=== PATIENT | female | born 1990 | race Caucasian/White ===

== ENCOUNTER 2017-08-17 16:43 | Outpatient (CLI) | payer SELFPAY ==
[2017-08-17 17:40] VITALS: BP 119/77
[2017-08-17] MEDS ORDERED: LACTATED RINGERS 500 ML IV ONE (19:00)
== END 2017-08-17 19:37 | disposition home or self-care (01) ==
LOC: TRG 16:43
PROVIDERS: ATTEND Obstetrics & Gynecology
DX: O47.1 False labor at or after 37 completed weeks of gestation (principal); Z3A.38 38 weeks gestation of pregnancy
CPT/HCPCS: 59025

== ENCOUNTER 2017-09-24 15:22 | Outpatient (CLI) | payer SELFPAY ==
--- NOTE | 2017-09-24 19:06 | Ultrasound Report ---
FINAL REPORT PROCEDURE: US OB BPP WO NON-STRESS TECHNIQUE: Sonographic evaluation for breathing, movement, tone, and amniotic fluid volume was performed. CPT 73864 HISTORY: well being. COMPARISON: No prior studies are available for comparison. FINDINGS: Amniotic fluid volume: Normal-score 2. At least one vertical pocket > 2 cm or more in vertical axis. breathing: Normal-score 2. movement: Normal-score 2. tone: Normal. Score: 8 of 8. heart rate 133 beats per minute. position: Cephalic. IMPRESSION: Normal biophysical profile.
--- NOTE | 2017-09-24 19:08 | Ultrasound Report ---
FINAL REPORT PROCEDURE: US OB LIMITED TECHNIQUE: Real-time limited sonographic examination was performed for evaluation of size, position, heartbeat, fluid volume for each fetus with image documentation (1 or more fetuses). CPT 09147 HISTORY: well being. DAGO. COMPARISON: Biophysical profile dated same day and time. FINDINGS: FETUS IUP: Single living intrauterine . Position: Cephalic. Amniotic fluid volume: 10.6 cm. Heart rate and rhythm: 134 BPM, Regular . IMPRESSION: position cephalic. Normal amniotic fluid volume. Please refer to biophysical profile report dated same day and time for full details concerning findings.
[2017-09-24 20:52] VITALS: BP 114/68
== END 2017-09-24 17:44 | disposition home or self-care (01) ==
LOC: TRG 15:22
PROVIDERS: ATTEND Obstetrics & Gynecology
DX: O48.0 Post-term pregnancy (principal); Z3A.40 40 weeks gestation of pregnancy
CPT/HCPCS: 59025; 76815; 76819

== ENCOUNTER 2017-09-28 02:54 | Inpatient (IN) | payer OTHER ==
[2017-09-28] MEDS ORDERED: BRETHINE SUB-Q ONE (03:26)
[2017-09-28] MEDS ORDERED: REGLAN IV ONE ×2 (03:27→04:40)
[2017-09-28] MEDS ORDERED: BICITRA PO ONE ×2 (03:27→04:40)
[2017-09-28] MEDS ORDERED: PEPCID IV ONE ×2 (03:27→04:40)
[2017-09-28] MEDS ORDERED: ANCEF/STERILE WATER 2 GM/20 ML 2 GM/20 ML SYRINGE IV NR (04:00)
[2017-09-28] MEDS ORDERED: LACTATED RINGERS 1,000 ML IV SCH ×2 (04:00→05:00)
[2017-09-28] MEDS ORDERED: PITOCin/NS 20 UNIT/1000ML DRIP 20 UNITS/1,000 ML BAG IV SCH ×3 (04:00→07:00)
[2017-09-28] MEDS ORDERED: ASTRAMORPH PF 10MG/10ML ONE (04:01)
[2017-09-28 04:02] LABS: Basophils % (Auto) 0.2 % (0.0-1.8); Eosinophils # (Auto) 0.1 K/mm3 (0.0-0.4); Eosinophils % (Auto) 0.6 % (0.0-4.3); Hematocrit 38.7 % (30.3-42.9); Hemoglobin 13.2 gm/dl (10.1-14.3); Lymphocytes # (Auto) 2.1 K/mm3 (1.2-5.4); Lymphocytes % (Auto) 17.7 % (13.4-35.0); Mean Corpuscular HGB Conc 34 % (30-34); Mean Corpuscular Hemoglobin 30 pg (28-32); Mean Corpuscular Volume 87 fl (79-97); Monocytes # (Auto) 0.5 K/mm3 (0.0-0.8); Monocytes % (Auto) 4.3 % (0.0-7.3); Platelet Count 181 K/mm3 (140-440); Red Blood Count 4.45 M/mm3 (3.65-5.03); Red Cell Distribution Width 14.8 % (13.2-15.2)
[2017-09-28] MEDS ORDERED: ZOFRAN IV PRN ×2 (04:19→06:07)
[2017-09-28] MEDS ORDERED: NARCAN 0.4 MG/1 ML IV PRN ×2 (04:19→06:07)
[2017-09-28] MEDS ORDERED: PHENERGAN PO PRN (04:19)
[2017-09-28] MEDS ORDERED: PHENERGAN PR PRN (04:19)
--- NOTE | 2017-09-28 04:19 | Anesthesia Day of Surgery ---
Anesthesia Day of Surgery - Day of Surgery Patient Examined: Yes Patient H&P Reviewed: Yes Patient is NPO: Yes
--- NOTE | 2017-09-28 04:19 | Anesthesia Consultation ---
Anesthesia Consult and Med Hx Date of service: 09/28/17 - Airway Anesthetic Teeth Evaluation: Good ROM Head & Neck: Adequate Mental/Hyoid Distance: Adequate Mallampati Class: Class II Intubation Access Assessment: Possibly Difficult - Pulmonary Exam CTA: Yes - Cardiac Exam Cardiac Exam: RRR - Pre-Operative Health Status ASA Pre-Surgery Classification: ASA2 Proposed Anesthetic Plan: Epidural, Spinal - Pulmonary Hx Smoking: No Hx Asthma: No - Cardiovascular System Hx Hypertension: No - Central Nervous System Hx Seizures: No Hx Psychiatric Problems: No - Endocrine Hx Renal Disease: No Hx Hypothyroidism: No Hx Hyperthyroidism: No - Hematic Hx Anemia: No Hx Sickle Cell Disease: No - Other Systems Hx Alcohol Use: No
[2017-09-28 04:31] LABS: Amphetamine Screen,Urine PRESUMPTIVE NEGATIVE; Benzodiazepines Screen,Urine PRESUMPTIVE NEGATIVE; Cannabinoid Screen,Urine PRESUMPTIVE NEGATIVE; Cocaine Screen,Urine PRESUMPTIVE NEGATIVE; Methadone Screen,Urine PRESUMPTIVE NEGATIVE; Opiate Screen,Urine PRESUMPTIVE NEGATIVE
--- NOTE | 2017-09-28 04:46 | History and Physical Report ---
History of Present Illness Date of examination: 09/28/17 Date of admission: 09/28/17 04:35 Chief complaint: SIUP at 40 weeks gestation with contractions. History of present illness: Patient is 27 year old , LMP 12/01/16, EDC 09/24/17 at 40 weeks and 4 days gestation who presented to triage complaining of having contractions since about 9 PM last night. She denies any fluid leakage or bleeding. She reports good movement. She was late registrant to care at [facility] in 05/2017 and only had 3 visits. She has not been to the clinic since may. Her records are not available. Past History Past Surgical History: section Family/Genetic History: none Social history: no significant social history - Obstetrical History Expected Date of Delivery: 09/24/17 Actual Gestation: 40 Week(s) 4 Day(s) : 2 Para: 1 Number of Living Children: 1 Medications and Allergies Allergies Allergy/AdvReac Type Severity Reaction Status Date / Time No Known Allergies Allergy Unverified 08/17/17 18:26 Home Medications Medication Instructions Recorded Confirmed Last Taken Type No Known Home Medications [No 09/24/17 09/24/17 Unknown History Reported Home Medications] Active Meds: Active Medications Lactated Ringer's (Lactated Ringers) 1,000 mls @ 2,250 mls/hr IV PREOP MARLENY Stop: 09/29/17 04:27 Last Admin: 09/28/17 03:40 Dose: 2,250 mls/hr Oxytocin/Sodium Chloride (Pitocin/Ns 20 Unit/1000ml Drip) 20 units in 1,000 mls @ 0 mls/hr IV TITR MARLENY Naloxone HCl (Narcan 0.4 Mg/1 Ml) 0.2 mg IV Q2MIN PRN PRN Reason: Res Rate </= 8 or 02 SAT < 92% Ondansetron HCl (Zofran) 4 mg IV Q8H PRN PRN Reason: Nausea And Vomiting Promethazine HCl (Phenergan) 25 mg PO Q6H PRN PRN Reason: Nausea And Vomiting Promethazine HCl (Phenergan) 25 mg NH Q6H PRN PRN Reason: Nausea And Vomiting Sodium Chloride (Sodium Chloride Flush Syringe 10 Ml) 10 ml IV PRN PRN PRN Reason: LINE FLUSH - Vital Signs Vital signs: Vital Signs Temp Pulse Resp BP Pulse Ox 98.7 F 80 18 122/74 99 09/28/17 03:04 09/28/17 03:04 09/28/17 03:04 09/28/17 03:04 09/28/17 03:04 Temp Pulse Resp BP Pulse Ox 98.7 F 80 18 122/74 99 09/28/17 03:04 09/28/17 03:04 09/28/17 03:04 09/28/17 03:04 09/28/17 03:04 - Physical Exam Cardiovascular: Normal S1, Normal S2 Lungs: Positive: Clear to auscultation Vulva: both: normal Deep Tendon Reflex Grade: Normal +2 - Obstetrical FHR: category 1 Uterine Contraction Monitor Mode: External Cervical Dilatation: 6 Cervical Effacement Percentage: 90 station: -2 Uterine Contraction Pattern: Irregular Uterine Contraction Intensity: Moderate Results Result Diagrams: 09/28/17 03:40 Abnormal lab results 09/28/17 Range/Units 03:40 WBC 11.8 H (4.5-11.0) K/mm3 Seg Neutrophils % 77.2 H (40.0-70.0) % Seg Neutrophils # 9.1 H (1.8-7.7) K/mm3 All other labs normal. Assessment and Plan - Patient Problems (1) 40 weeks gestation of Current Visit: Yes Status: Acute (2) Active labor at term Current Visit: Yes Status: Acute Plan to address problem: Admit to labor floor. Prepare for repeat C/section. Risks and benefits of the procedure were discussed with the patient. She gave her informed consent. Routine admitting and labs. monitoring. NPO. IV bolus. (3) Previous section Current Visit: Yes Status: Acute Plan to address problem: For repeat C/section. (4) Non-compliance Current Visit: Yes Status: Acute (5) Late care Current Visit: Yes Status: Acute (6) Anemia Current Visit: Yes Status: Acute Qualifiers: Anemia type: iron deficiency
[2017-09-28] MEDS ORDERED: SODIUM CHLORIDE FLUSH SYRINGE 10 ML IV PRN (05:00)
[2017-09-28] MEDS ORDERED: WATER FOR IRRIG STERILE IR ONE (05:10)
[2017-09-28] MEDS ORDERED: NACL 0.9% IR ONE (05:10)
[2017-09-28] MEDS ORDERED: NEO SYNEPHRINE/NS Syringe(OR USE) IV ONE (05:36)
[2017-09-28] MEDS ORDERED: LANSINOH TP PRN (06:07)
[2017-09-28] MEDS ORDERED: TYLENOL PO PRN (06:07)
[2017-09-28] MEDS ORDERED: DILAUDID IV PRN (06:07)
[2017-09-28] MEDS ORDERED: SENOKOT PO PRN (06:07)
[2017-09-28] MEDS ORDERED: ANUCORT-HC PR PRN (06:07)
[2017-09-28] MEDS ORDERED: TORADOL IV PRN ×2 (06:07)
[2017-09-28] MEDS ORDERED: TUCKS PAD TP PRN (06:07)
--- NOTE | 2017-09-28 06:29 | Operative Report ---
Operative Report Operative Report: Preoperative diagnosis: 1. SIUP at 40 weeks and 4 days gestation in active labor. 2. Previous cesarian section. 3. Declined . Postoperative diagnosis: 1. Same as preoperative diagnosis. 2. Meconium amniotic fluid. Procedure: Repeat low transverse section. Surgeon: Dr. Rincon Arc Cutter: none Anesthesia: Epidural EBL: 300 mL Urine: 400 cc clear. IVF: 1500 cc RL Complications: none Intraoperative findings: 1. Male found in an ABBY position, delivered at 5:21 AM, Apgars 8 at one minutes and 9 at 5 minutes, weight 8 lbs. 7 oz. 2. Normal fallopian tubes and ovaries bilaterally. 3. Meconium amniotic fluid. Procedure details: The risks, benefits, and alternatives to procedure were discussed in detail with the patient, which included but not limited to the risk of infection, hemorrhage requiring blood transfusion, injury to the bowel bladder and blood vessels. The patient expressed understanding, her questions were answered, and she given informed consent. The patient was taken to the operating room with an IV fluid infusing RL and a Metz catheter in place. In the operating room, she was placed in a sitting position and given epidural anesthesia. She was then placed in the dorsal supine position with a leftward tilt. Venodyne boots were placed. The abdomen was washed and she was prepared and draped in usual sterile fashion. After assuring adequate epidural anesthesia, a Pfannenstiel skin incision was made in the lower abdomen at the level of the previous scar which is about 2 cm above the pubic symphysis. This incision was carried down to the underlying fascia using the Bovie. The fascia was opened bilaterally in a curvilinear fashion using the Bovie. 2 straight Kocker clamps were used to grasp the upper edge of the fascia form which the underlying rectus abdominis muscle was dissected off using the Bovie. A similar procedure was done with the lower edge of the fascia to dissect the underlying rectus abdominis muscle. The muscle was bluntly from the midline by pulling. The parietal peritoneum was grasped with 2 hemostat clamps and entered sharply using Metzenbaum scissors. A quick survey of the anatomy revealed a gravid uterus, normal fallopian tubes, and ovaries bilaterally. A bladder flap was created. Mika'O retractor was placed at the incision for proper visualization. A low transverse incision was made in the lower uterine segment using the scalpel and extended bilaterally using bandage scissors. The amniotic sac was ruptured and there was moderate amount of meconium-stained amniotic fluid. The was found in ABBY position , the head was delivered atraumatically, followed by delivery of the shoulders and rest of the body at 5:21 AM. The cord was clamped 2 and cord and the was handed off to the waiting slicing machine operator. The infant was a male, Apgars were 8 at 1 minute and 9 at 5 minutes, weight was 8 lbs 7 oz. Cord blood was collected. The placenta was delivered manually and it was completely three-vessel cord. The uterine cavity was cleaned of clots and debris using dry lap sponges. The uterine incision was repaired in a running locked fashion using 0 Vicryl sutures. A second layer of imbrication was placed. The gutters were cleaned of clots and debris is using dry lap sponges. After assuring adequate hemostasis, the instruments were removed from the abdominal cavity. The fascia was closed in a running fashion using 0 Vicryl sutures. The skin was closed with thad. Sterile dressing was placed. The counts of laps, needles, sponges and instruments were correct 2. The patient tolerated the procedure well. She was taken to the recovery room in a stable condition.
[2017-09-28] MEDS ORDERED: SODIUM CHLORIDE FLUSH SYRINGE 10 ML IV NR (07:00)
[2017-09-28] MEDS ORDERED: BENADRYL IV ONE (07:30)
[2017-09-28 10:13] LABS: Basophils % (Auto) 0.2 % (0.0-1.8); Eosinophils % (Auto) 0.2 % (0.0-4.3); Hemoglobin 11.9 gm/dl (10.1-14.3); Lymphocytes # (Auto) 1.8 K/mm3 (1.2-5.4); Mean Corpuscular HGB Conc 34 % (30-34); Mean Corpuscular Hemoglobin 30 pg (28-32); Mean Corpuscular Volume 88 fl (79-97); Monocytes # (Auto) 0.3 K/mm3 (0.0-0.8); Monocytes % (Auto) 2.9 % (0.0-7.3); Platelet Count 163 K/mm3 (140-440); Red Blood Count 3.99 M/mm3 (3.65-5.03)
[2017-09-28] MEDS ORDERED: D5LR 1,000 ML IV ONE (16:47)
[2017-09-28] MEDS ORDERED: D5LR 1,000 ML IV SCH (18:00)
[2017-09-28] MEDS: MOTRIN PO PRN (21:13)
[2017-09-28 22:24] LABS: Hematocrit 33.1 % (30.3-42.9); Hemoglobin 11.5 gm/dl (10.1-14.3)
[2017-09-29] MEDS: MOTRIN PO PRN ×3 (06:12→18:37)
[2017-09-29] MEDS: FEOSOL PO SCH (09:56)
[2017-09-29] MEDS: PRENATAL VITAMIN PO SCH (09:56)
[2017-09-29] MEDS: PERCOCET 5/325 PO PRN ×3 (09:57→22:35)
--- NOTE | 2017-09-29 10:12 | Progress Note ---
Assessment and Plan A: POD #1 Stable P: Follow routine postop orders increase ambulation Subjective - Subjective Date of service: 09/29/17 Patient reports: appetite normal, voiding normally, pain well controlled, flatus , ambulating normally [place]: doing well Objective - Vital Signs Latest vital signs: Vital Signs Temp Pulse Resp BP BP Pulse Ox 09/29/17 08:19 98.6 F 76 20 97/56 09/29/17 06:12 18 09/29/17 01:06 98.3 F 82 18 109/64 97 09/28/17 21:22 99.0 F 90 18 119/75 98 09/28/17 21:13 18 09/28/17 17:08 98.5 F 91 H 18 112/70 98 Intake and Output 09/28/17 09/29/17 09/29/17 22:59 06:59 14:59 Intake Total 240 120 Output Total 400 Balance -400 240 120 Intake: Oral 240 120 Output: Urine 400 Indwelling Catheter 400 Other: Total, Intake Amount 120 120 Total, Output Amount 400 # Voids Indwelling Catheter 1 - Exam Breasts: Present: normal Cardiovascular: Present: Regular rate Lungs: Present: Clear to auscultation, Normal air movement Abdomen: Present: normal appearance, soft, normal bowel sounds Uterus: Present: normal, firm, fundal height below umbilicus Extremities: Present: normal Incision: Present: normal, dry, dressed - Labs Labs: Abnormal lab results 09/28/17 Range/Units 09:38 WBC 11.8 H (4.5-11.0) K/mm3 Seg Neutrophils % 81.7 H (40.0-70.0) % Seg Neutrophils # 9.7 H (1.8-7.7) K/mm3
[2017-09-29] MEDS: MILK OF MAGNESIA PO PRN (23:31)
[2017-09-30] MEDS: MOTRIN PO PRN ×4 (00:01→23:39)
[2017-09-30] MEDS: PERCOCET 5/325 PO PRN ×2 (05:49→23:39)
--- NOTE | 2017-09-30 10:19 | Progress Note ---
Assessment and Plan A: POD#2 s/p Repeat C/S Stable Pain well controlled P: Routine PP/PO care Encouraged ambulation Discharge home in am Subjective - Subjective Date of service: 09/30/17 Principal diagnosis: s/p Repeat C/S Patient reports: appetite normal, voiding normally, pain well controlled, flatus , ambulating normally, no bowel movement : doing well, bottle feeding Objective - Vital Signs Latest vital signs: Vital Signs Temp Pulse Resp BP 09/30/17 05:49 20 09/30/17 01:36 98.6 F 80 16 104/60 09/29/17 22:35 20 09/29/17 16:30 98.2 F 84 20 108/52 Intake and Output 09/29/17 09/30/17 09/30/17 23:59 07:59 15:59 Intake Total 840 240 Balance 840 240 Intake: Oral 840 Intake, Free Water 240 Other: Total, Intake Amount 240 # Voids Indwelling Catheter 1 1 Void 1 - Exam Breasts: Present: normal Cardiovascular: Present: Regular rate, Normal S1, Normal S2 Lungs: Present: Clear to auscultation, Normal air movement Abdomen: Present: normal appearance, normal bowel sounds. Absent: distention Vulva: both: normal Uterus: Present: firm, fundal height at umbilicus Extremities: Present: normal Incision: Present: normal (LTI, closed with thad, open to air. CDI. well approximated. No drainage. ), dry, intact
--- NOTE | 2017-09-30 10:20 | Discharge Summary ---
Providers - Providers Date of Admission: 09/28/17 04:35 Date of discharge: 10/01/17 Attending physician: ALEJANDRA SEGOVIA MD Primary care physician: ALEJANDRA SEGOVIA MD Hospitalization Reason for admission: active labor, IUP at term Delivery: Procedure: repeat low transverse Procedure details: See operative note Incision: normal (LTI closed with thad, open to air, CDI, well approximated. no drainage), dry, intact complications: none Discharge diagnosis: IUP at term delivered [place] baby: male Condition at discharge: Good Disposition: DC-01 TO HOME OR SELFCARE Plan - Discharge Medications Prescriptions: Ibuprofen [Motrin] 600 mg PO Q8H PRN #20 tablet PRN Reason: Pain oxyCODONE /ACETAMINOPHEN [Percocet 5/325] 1 tab PO Q6HR #14 tab MDD 4 - Provider Discharge Summary Activity: routine, no sex for 6 weeks, no heavy lifting 4 weeks, no strenuous exercise Diet: routine Instructions: routine Additional instructions: [] Smoking cessation referral if applicable(refer to patient education folder for contact #) [] Refer to [facility]'s [facility] Booklet Call your doctor immediately for: * Fever > 100.5 * Heavy vaginal bleeding ( >1 pad per hour) * Severe persistent headache * Shortness of breath * Reddened, hot, painful area to leg or breast * Drainage or odor from incision. * Keep incision clean and dry at all times and follow doctor's instructions regarding bathing/showering - Follow up plan Follow up: ALEJANDRA SEGOVIA MD [Primary Care Provider] - 7 Days
[2017-09-30] MEDS: PRENATAL VITAMIN PO SCH (11:13)
[2017-09-30] MEDS: FEOSOL PO SCH (11:13)
[2017-09-30] MEDS: MILK OF MAGNESIA PO PRN (11:14)
[2017-10-01] MEDS: MOTRIN PO PRN ×2 (06:00→11:51)
[2017-10-01 10:01] VITALS: BP 102/57
[2017-10-01] MEDS: FEOSOL PO SCH ×2 (11:50→11:52)
[2017-10-01] MEDS: PRENATAL VITAMIN PO SCH ×2 (11:50→11:52)
== END 2017-10-01 14:20 | disposition home or self-care (01) | DRG 766 ==
LOC: TRG 02:54 → APU 04:35 → OB 08:20
PROVIDERS: ADMIT Obstetrics & Gynecology; ATTEND Obstetrics & Gynecology
PROC: 10D00Z1 Extraction of Products of Conception, Low, Open Approach (ICD-10-PCS; principal; 2017-09-28)
DX: O34.211 Maternal care for low transverse scar from previous cesarean delivery (principal); Z3A.40 40 weeks gestation of pregnancy; Z37.0 Single live birth; O99.02 Anemia complicating childbirth; D64.9 Anemia, unspecified; O77.0 Labor and delivery complicated by meconium in amniotic fluid; Z91.19 Patient's noncompliance with other medical treatment and regimen
CPT/HCPCS: 36415; 80307; 85014; 85018; 85025; 86592; 86706; 86762; 86850; 86900; 86901; 87806; 99211; G0463; J0690; J1170; J1200; J1885; J2274; J2370; J2590; J2765; J3105; J7120; J7121

== ENCOUNTER 2017-10-11 13:32 | Emergency (ER) | payer OTHER ==
[2017-10-11 14:04] VITALS: BP 108/56
--- NOTE | 2017-10-11 16:23 | Emergency Department Report ---
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 Patient stated she did not follow up with a primary care doctor or SITE ADMINISTRATOR doctor. Patients sister is present and is translating for patient. Patient denies any swelling, redness, pus, drainage, fever, chills, headache, nausea, vomiting, chest pain, shortness of breathe, abdominal pain, or back pain. Patient denies breast feeding. Patient stated she was prescribed Percocet and has ran out and pain is unrelieved with motrin. Patient denies any allergies or significant past medical history. MD Complaint: wound re-check Initial Visit For: other (c-seection) Returns Today for: wound recheck Symptoms Since Prior Visit: no new symptoms Associated Symptoms: none. denies: fever, chills, chest pain, shortness of breath, rash, malaise, nasuea, abdominal pain - Related Data Previous Rx's Medication Instructions Recorded Last Taken Type Ibuprofen [Motrin] 600 mg PO Q8H PRN #20 tablet 09/29/17 Unknown Rx oxyCODONE /ACETAMINOPHEN [Percocet 1 tab PO Q6HR #14 tab MDD 4 09/29/17 Unknown Rx 5/325] oxyCODONE /ACETAMINOPHEN [Percocet 1 tab PO Q6HR PRN #14 tablet 10/11/17 Unknown Rx 5/325] Allergies Allergy/AdvReac Type Severity Reaction Status Date / Time No Known Allergies Allergy Unverified 08/17/17 18:26 ED Review of Systems ROS: Stated complaint: INCISION PAIN Other details as noted in HPI Constitutional: denies: chills, fever Eyes: denies: eye pain, eye discharge, vision change ENT: denies: ear pain, throat pain Respiratory: denies: cough, shortness of breath, wheezing Cardiovascular: denies: chest pain, palpitations Endocrine: no symptoms reported Gastrointestinal: denies: abdominal pain, nausea, diarrhea Genitourinary: denies: urgency, dysuria, discharge Musculoskeletal: denies: back pain, joint swelling, arthralgia Skin: denies: rash, lesions Neurological: denies: headache, weakness, paresthesias Psychiatric: denies: anxiety, depression Hematological/Lymphatic: denies: easy bleeding, easy bruising ED Past Medical Hx - Past Medical History Hx Hypertension: No Hx Diabetes: No Hx Deep Vein Thrombosis: No Hx Renal Disease: No Hx Sickle Cell Disease: No Hx Seizures: No Hx Asthma: No Hx HIV: No - Social History Smoking Status: Never Smoker Substance Use Type: None - Medications Home Medications: Home Medications Medication Instructions Recorded Confirmed Last Taken Type Ibuprofen [Motrin] 600 mg PO Q8H PRN #20 tablet 09/29/17 Unknown Rx oxyCODONE /ACETAMINOPHEN [Percocet 1 tab PO Q6HR #14 tab MDD 4 09/29/17 Unknown Rx 5/325] oxyCODONE /ACETAMINOPHEN [Percocet 1 tab PO Q6HR PRN #14 tablet 10/11/17 Unknown Rx 5/325] ED Physical Exam - General Limitations: Language Barrier General appearance: alert, in no apparent distress - Head Head exam: Present: atraumatic, normocephalic - Eye Eye exam: Present: normal appearance Pupils: Present: normal accommodation - ENT ENT exam: Present: normal exam, mucous membranes moist - Neck Neck exam: Present: normal inspection, full ROM. Absent: tenderness, meningismus, lymphadenopathy - Respiratory Respiratory exam: Present: normal lung sounds bilaterally. Absent: respiratory distress, wheezes, rales, rhonchi, stridor - Cardiovascular Cardiovascular Exam: Present: regular rate, normal rhythm, normal heart sounds. Absent: bradycardia, tachycardia, irregular rhythm, systolic murmur, diastolic murmur, rubs, gallop - GI/Abdominal GI/Abdominal exam: Present: soft, normal bowel sounds, other ([place] present in pelvic area. No redness. No swelling. No pus or driange. No cellulitis noted. ). Absent: distended, tenderness, guarding, rebound, rigid, diminished bowel sounds - Rectal Rectal exam: Present: deferred - Extremities Exam Extremities exam: Present: normal inspection, full ROM, normal capillary refill - Back Exam Back exam: Present: normal inspection, full ROM - Neurological Exam Neurological exam: Present: alert, oriented X3, normal gait - Psychiatric Psychiatric exam: Present: normal affect, normal mood - Skin Skin exam: Present: warm, dry, intact, normal color. Absent: rash ED Course Vital Signs 10/11/17 13:59 Temperature 98.3 F Pulse Rate 71 Respiratory 20 Rate Blood Pressure 108/56 O2 Sat by Pulse 100 Oximetry - Reevaluation(s) Reevaluation #1: 10/11/17 16:25 Patient is speaking in full sentences with no signs of distress noted. ED Recheck MDM - Medical Decision Making This is a 27-year-old female that presents with incisional pain. Patient is stable and was examined by me. The incision does not have any redness, pus, draiange. No signs of cellultitis. No abdominal tenderness or distention. Vitals stable. Patient received [place] in the ED. Sister is the courtesy driver and assistant professor of criminal justice. Patient was given information on her SITE ADMINISTRATOR and was instructed to Follow-up with a OB/GYNe doctor in 3-5 days or if symptoms worsen and continue return to emergency room as soon as possible. Patient is discharged with Percocet for pain and was instructed not to operate any machinery while taking this due to drowsiness. At time of discharge, the patient does not seem toxic or ill in appearance. No acute signs of distress noted. Patient agrees to discharge treatment plan of care. No further questions noted by the patient. Critical care attestation.: If time is entered above; I have spent that time in minutes in the direct care of this critically ill patient, excluding procedure time. ED Disposition Clinical Impression: Pain at surgical incision Disposition: DC-01 TO HOME OR SELFCARE Is pt being admited?: No Does the pt Need Aspirin: No Condition: Stable Additional Instructions: Follow-up with a SITE ADMINISTRATOR doctor in 3-5 days or if symptoms worsen and continue return to emergency room as soon as possible. Prescriptions: oxyCODONE /ACETAMINOPHEN [Percocet 5/325] 1 tab PO Q6HR PRN #14 tablet PRN Reason: Pain Referrals: PRIMARY CAREMD [Primary Care Provider] - 3-5 Days ALEJANDRA SEGOVIA MD [Staff Physician] - 3-5 Days [facility] [Provider Group] - 3-5 Days [facility] [Outside] - 3-5 Days [facility] [Outside] - 3-5 Days
== END 2017-10-11 17:07 | disposition home or self-care (01) ==
LOC: ED 13:32
DX: G89.18 Other acute postprocedural pain (principal)
CPT/HCPCS: 99282